=== PATIENT | female | born 1990 | race Caucasian/White ===

== ENCOUNTER 2022-04-17 07:08 | Inpatient (IN) | payer OTHER ==
[2022-04-17] MEDS: ELECTROLYTE-148 SOLN 1,000 ML IV SCH ×2 (08:00→14:45)
[2022-04-17] MEDS ORDERED: OXYTOCIN 30 UNITS in 0.9% NS 30 UNIT/500 ML INFUS.BAG IVPB ONE (08:25)
[2022-04-17 09:02] LABS: BASO % 0.4 % (0-2.0); EOS % 0.7 % (0-4.5); HEMATOCRIT 35.7 % (32.4-45.2); LYMPH % 21.5 % (8-40); MCHC 33.5 g/dl (32.0-36.0); MEAN CELL VOLUME 89.5 fl (80-96); MEAN PLT VOLUME 9.1 fl (7.5-11.1); MONO % 8.2 % (3.8-10.2); NEUT % 69.2 % (42.8-82.8); PLATELET COUNT 250 10^3/uL (134-434); RBC 3.99 M/mm3 (3.60-5.2); RDW 13.6 % (11.6-15.6); WHITE BLOOD COUNT 7.8 K/mm3 (4.0-10.0)
[2022-04-17 09:06] LABS: INR 0.95 (0.83-1.09)
[2022-04-17 09:09] LABS: ACTIVATED PTT 27.5 SECONDS (25.2-36.5)
[2022-04-17 09:18] LABS: CALCIUM 8.4 mg/dL (8.5-10.1)
[2022-04-17 09:19] LABS: BLOOD UREA NITROGEN 7.4 mg/dL (7-18)
[2022-04-17 09:22] LABS: CREATININE 0.6 mg/dL (0.55-1.3)
[2022-04-17 09:35] VITALS: BMI 29.2
[2022-04-17] MEDS ORDERED: OXYTOCIN 30 UNITS in 0.9% NS 30 UNIT/500 ML INFUS.BAG IVPB SCH (09:45)
[2022-04-17] MEDS ORDERED: FENTANYL/BUPIVACAINE/NS/PF - PCEA - 50 ML DISP.SYRIN EP ONE (13:51)
[2022-04-17] MEDS ORDERED: FENTANYL/BUPIVACAINE/NS/PF - PCEA - 50 ML DISP.SYRIN EP SCH (14:10)
[2022-04-17] MEDS ORDERED: NALOXONE HCL 0.4 MG/ML VIAL IVPUSH PRN (14:24)
[2022-04-17] MEDS ORDERED: OXYTOCIN 20 UNITS in 0.9% NS 20 UNIT/1,000 ML INFUS.BAG IV ONE (17:13)
[2022-04-17] MEDS ORDERED: LIDOCAINE HCL 1% PRESERVATIVE FREE - 30ML VIAL ONE (17:14)
[2022-04-17] MEDS ORDERED: BENZOCAINE 28 GM HEMORRHOIDAL OINTMENT TP PRN (19:27)
[2022-04-17] MEDS ORDERED: WITCH HAZEL 50% (TUCKS) 40 PAD/JAR PAD TP PRN (19:27)
[2022-04-17] MEDS ORDERED: METHYLERGONOVINE MALEATE 0.2 MG/1 ML AMP IM PRN (19:27)
[2022-04-17] MEDS ORDERED: oxyCODONE HCL 5 MG TABLET PO PRN (19:27)
[2022-04-17] MEDS ORDERED: BISACODYL 10 MG SUPP.RECT RC PRN (19:27)
[2022-04-17] MEDS ORDERED: OXYTOCIN 20 UNITS in 0.9% NS 20 UNIT/1,000 ML INFUS.BAG IV SCH (19:30)
[2022-04-17] MEDS: BENZOCAINE 20% 57 GM BOTTLE TP PRN (22:51)
[2022-04-17] MEDS: IBUPROFEN 600 MG TABLET (FP) PO PRN (22:51)
[2022-04-18] MEDS: ACETAMINOPHEN 325 MG TABLET (FP) PO PRN ×2 (02:55→09:33)
[2022-04-18] MEDS: IBUPROFEN 600 MG TABLET (FP) PO PRN ×3 (05:55→20:45)
[2022-04-18 07:21] LABS: BASO % 0.3 % (0-2.0); EOS % 0.1 % (0-4.5); HEMATOCRIT 30.8 % (32.4-45.2); HEMOGLOBIN 10.5 GM/dL (10.7-15.3); LYMPH % 11.9 % (8-40); MCH 30.4 pg (25.7-33.7); MCHC 34.2 g/dl (32.0-36.0); MEAN PLT VOLUME 9.2 fl (7.5-11.1); MONO % 6.9 % (3.8-10.2); NEUT % 80.8 % (42.8-82.8); PLATELET COUNT 218 10^3/uL (134-434); RBC 3.46 M/mm3 (3.60-5.2); RDW 13.4 % (11.6-15.6); WHITE BLOOD COUNT 13.6 K/mm3 (4.0-10.0)
[2022-04-18] MEDS: BENZOCAINE 20% 57 GM BOTTLE TP PRN (21:53)
[2022-04-18] MEDS ORDERED: SENNOSIDES/DOCUSATE COMBO (SENNA PLUS) TABLET (UD) PO PRN (22:00)
[2022-04-19] MEDS: IBUPROFEN 600 MG TABLET (FP) PO PRN ×2 (02:42→09:52)
[2022-04-19 10:41] VITALS: BP 114/74; PULSE 86; RESP 18; TEMP 98.7
== END 2022-04-19 12:25 | disposition home or self-care (01) | DRG 807 ==
LOC: JLDR 07:08 → J3W 22:07
PROVIDERS: ADMIT Specialist; ATTEND Specialist
PROC: 10907ZC Drainage of Amniotic Fluid, Therapeutic from Products of Conception, Via Natural or Artificial Opening (ICD-10-PCS; principal; 2022-04-17)
PROC: 10E0XZZ Delivery of Products of Conception, External Approach (ICD-10-PCS; 2022-04-17)
PROC: 0W8NXZZ Division of Female Perineum, External Approach (ICD-10-PCS; 2022-04-17)
PROC: 3E033VJ Introduction of Other Hormone into Peripheral Vein, Percutaneous Approach (ICD-10-PCS; 2022-04-17)
DX: O41.03X0 Oligohydramnios, third trimester, not applicable or unspecified (principal); Z37.0 Single live birth; Z3A.38 38 weeks gestation of pregnancy
CPT/HCPCS: 36415; 59409; 80048; 85025; 85610; 85730; 86780; 86850; 86900; 86901; C9803-CS; U0003; U0005